=== PATIENT | male | born 1970 | race Caucasian/White ===

== ENCOUNTER 2019-11-20 14:11 | Inpatient (IN) | payer MEDICAID, SELFPAY ==
[2019-11-20] VITALS (11 sets, daily range): BP systolic 103–121; BP diastolic 79–91; PULSE 81–101; RESP 10–21; TEMP 35.9–36.6; O2SAT 94–99; BMI 30.4; BMI 31.0
--- NOTE | 2019-11-20 14:26 | DI.RAD.S_ITS ---
PROCEDURE: XR CHEST 1V INDICATIONS: chest pain TECHNIQUE: One view of the chest was acquired. COMPARISON: None. FINDINGS: Surgical changes and devices: None. Lungs and pleura: Lungs are mildly edematous. No pleural effusions or pneumothorax. Mediastinum: Mediastinal contours appear normal. Heart size is globally enlarged. Bones and chest wall: No suspicious bony lesions. Overlying soft tissues appear unremarkable. IMPRESSION: Chronic CHF pattern, possible mild acute exacerbation. No focal pneumonia found. Dictated by: Yann Rush M.D. on 11/20/2019 at 14:55 Approved by: Yann Rush M.D. on 11/20/2019 at 14:55
[2019-11-20 14:48] LABS: Add Manual Diff / Slide Review NO; Basophils Absolute Auto 0 /uL (0-100); Basophils Percent Auto 0.6 % (0-2); Eosinophils Absolute Auto 200 /uL (0-450); Eosinophils Percent Auto 2.6 % (2-4); Hematocrit 42.3 % (41-53); Hemoglobin 13.9 g/dL (13.5-17.5); Lymphocytes Absolute Auto 1300 /uL (1100-4500); Lymphocytes Percent Auto 17.3 % (25-40); Mean Corpuscular HGB Conc 32.8 % (30-36); Mean Corpuscular Hemoglobin 28.8 PG (26-34); Mean Corpuscular Volume 87.8 fL (80-100); Monocytes Absolute Auto 500 /uL (0-900); Neutrophils Absolute Auto 5500 /uL (1500-7000); Neutrophils Percent Auto 72.5 % (50-75); Platelet Count 287 X10^3/uL (150-400); Red Blood Cell Count 4.81 X10^6/uL (4.5-5.9); Red Cell Distribution Width 14.4 % (11.6-14.8); White Blood Cell Count 7.6 X10^3/uL (4.5-11.0)
--- NOTE | 2019-11-20 14:49 | ED_ITS ---
HPI - Weakness General Chief complaint: Weakness Stated complaint: swelling Time Seen by Provider: 11/20/19 14:25 Source: patient Mode of arrival: Ambulatory Limitations: no limitations History of Present Illness HPI Narrative: Patient is a 49-year-old male with no known medical history presenting today with swelling ongoing and progressively getting worse for 1 week. He says he noticed some swelling in his lower extremities it has gone up to his abdomen and even into his scrotum. He denies any chest pain or shortness of breath and denies any shortness of breath with exertion. He denies any fever chills or body aches. He overall feels weak. MD Complaint: generalized weakness Related Data Home Medications Medication Instructions Recorded Confirmed No Known Home Medications 11/20/19 11/20/19 Allergies Allergy/AdvReac Type Severity Reaction Status Date / Time No Known Drug Allergies Allergy Verified 11/20/19 14:17 Review of Systems Review of Systems ROS Unobtainable: All systems reviewed & are unremarkable except as noted in HPI and below Constitutional Constitutional: Denies chills, Denies fever(s), Denies lethargy and Denies weakness Eyes Eyes: Denies change in vision, Denies eye discharge, Denies irritation and Denies loss of vision ENT Ears, Nose, Mouth, and Throat: Denies change in voice, Denies neck pain and Denies sore throat Cardiovascular Cardiovascular: Denies chest pain, Reports edema, Denies lightheadedness and Denies dyspnea on exertion Respiratory Respiratory: Denies excessive phlegm production and Denies dyspnea on exertion Gastrointestinal Gastrointestinal: Denies abdominal pain, Denies change in bowel habits, Denies diarrhea, Denies nausea and Denies vomiting Genitourinary Genitourinary: Reports scrotal swelling (Now improving) Musculoskeletal Musculoskeletal: Denies neck pain Integumentary/Breasts Skin/Breast: Denies pruritus, Denies erythema, Denies rash and Denies wounds Neurologic Neurologic: Denies loss of vision and Denies weakness Patient History Medical History Patient denies medical problems (Acute) Social History household members: friend(s) Smoking Status: Former smoker Smoking Status: Former smoker alcohol intake frequency: 3 or more drinks per day Substance Use Type: marijuana Exam Initial Vital Signs Initial Vital Signs: Vital Signs Temperature 97.2 F L 11/20/19 14:17 Pulse Rate 101 H 11/20/19 14:17 Respiratory Rate 18 11/20/19 14:17 Blood Pressure 113/87 11/20/19 14:17 Pulse Oximetry 98 11/20/19 14:17 GENERAL: Well-appearing, well-nourished and in no acute distress. HEENT: Head atraumatic,EOMI, pupils reactive, face symmetric, moist mucous membranes CARDIOVASCULAR: Regular rate and rhythm systolic murmur present 09/25 RESPIRATORY: Breath sounds equal bilaterally, no wheezes rales or rhonchi. ABDOMEN: Soft, nontender. Normoactive bowel sounds all 4 quadrants. No guarding or rebound.rness EXTREMITIES: Normal range of motion, no clubbing. Bilateral nonpitting edema Neurovascularly intact NEUROLOGICAL: Alert and oriented x4.Normal gait and speech. Cranial nerves II through XII grossly intact. SKIN: Warm, dry, no laceration, no petechiae, no rashes or lesions. Course Orders Ordered: ED Orders 11/20/19 14:24 EKG-12 Lead Stat 11/20/19 14:26 XR chest 1V Stat 11/20/19 14:40 BNP [NT-proBNP (BNP-Adult 18+)] Stat Complete Blood Count AUTO DIFF Stat Comprehensive Metabolic Panel Stat Lipase Stat Partial Thromboplastin Time Stat Prothrombin Time INR Stat Troponin & CK Cardiac Panel Stat 11/20/19 16:30 Urine Drug Screen, Rapid Stat Discontinued Medications Aspirin (Aspirin Chew) 324 mg PO NOW ONE Stop: 11/20/19 14:43 Last Admin: 11/20/19 14:56 Dose: 324 mg Documented by: CHRISTINA Furosemide (Lasix) 40 mg IV NOW ONE Stop: 11/20/19 15:31 Last Admin: 11/20/19 15:44 Dose: 40 mg Documented by: CHRISTINA Consultations Consultation #1: Dr. Peña Time: 16:53 Vital Signs Vital signs: Vital Signs - 8 hr 11/20/19 14:17 11/20/19 14:30 11/20/19 15:00 Temperature 97.2 F L Pulse Rate 101 H 98 H 88 Respiratory Rate 18 21 10 L Blood Pressure 113/87 121/81 103/79 Pulse Oximetry 98 97 94 11/20/19 15:30 11/20/19 16:00 11/20/19 16:30 Temperature Pulse Rate 84 84 90 Respiratory Rate 13 12 20 Blood Pressure 105/81 108/83 Pulse Oximetry 96 11/20/19 16:31 Temperature Pulse Rate 89 Respiratory Rate 20 Blood Pressure 113/85 Pulse Oximetry 99 MDM - Weakness Lab Data Attestation: I reviewed the patient's lab results. Result diagrams: 11/20/19 14:40 11/20/19 14:40 Labs: Lab Results 11/20/19 11/20/19 11/20/19 Range/Units 14:40 14:40 14:40 WBC 7.6 (4.5-11.0) X10^3/uL RBC 4.81 (4.5-5.9) X10^6/uL Hgb 13.9 (13.5-17.5) g/dL Hct 42.3 (41-53) % MCV 87.8 (80-100) fL MCH 28.8 (26-34) PG MCHC 32.8 (30-36) % RDW 14.4 (11.6-14.8) % Plt Count 287 (150-400) X10^3/uL Neut % (Auto) 72.5 (50-75) % Lymph % (Auto) 17.3 L (25-40) % [place] % (Auto) 7.0 (3-14) % Eos % (Auto) 2.6 (2-4) % Baso % (Auto) 0.6 (0-2) % Neut # (Auto) 5500 (8536-9961) /uL Lymph # (Auto) 1300 (3728-0422) /uL [place] # (Auto) 500 (0-900) /uL Eos # (Auto) 200 (0-450) /uL Baso # (Auto) 0 (0-100) /uL PT 14.0 H (10.1-12.7) SECONDS INR 1.2 (0.9-1.3) APTT 33 (26.4-36.2) SECONDS Sodium 135 L (137-145) mmol/L Potassium 4.0 (3.4-5.1) mmol/L Chloride 106 (98-107) mmol/L Carbon Dioxide 23 (22-32) mmol/L BUN 7 L (9-20) mg/dL Creatinine 0.90 (0.66-1.25) mg/dL Estimated GFR > 60.0 (>60) mL/min BUN/Creatinine Ratio 7.8 (6-22) Glucose 148 H (70-100) mg/dL Calcium 9.0 (8.4-10.2) mg/dL Total Bilirubin 1.4 H (0.2-1.3) mg/dL AST 50 (17-59) IU/L ALT 57 H (<50) IU/L Alkaline Phosphatase 115 (38-126) U/L Total Creatine Kinase 325 H (55-170) U/L CK-MB (CK-2) 4.86 H (<2.37) ng/mL CK-MB (CK-2) Rel Index 1.5 (1.5-5.0) % Troponin I 0.061 H (0.01-0.034) ng/mL NT-Pro-B Natriuret Pep 3200 H (<125) pg/mL Total Protein 6.4 (6.3-8.2) g/dL Albumin 3.8 (3.5-5.0) g/dL Globulin 2.6 (1.7-4.1) g/dL Albumin/Globulin Ratio 1.5 (1.0-2.8) Lipase 126 (23-300) U/L U Opiates 300ng/mL cut (Negative) Ur Oxycodone Screen (Negative) Urine Methadone Screen (Negative) Ur Barbiturates Screen (Negative) U Tricyclic Antidepress (Negative) Ur Phencyclidine Scrn (Negative) Ur Amphetamines Screen (Negative) U Methamphetamines Scrn (Negative) Ur MDMA Scrn (Ecstasy) (Negative) U Benzodiazepines Scrn (Negative) Urine Cocaine Screen (Negative) U Marijuana (THC) Screen (Negative) 11/20/19 Range/Units 16:30 WBC (4.5-11.0) X10^3/uL RBC (4.5-5.9) X10^6/uL Hgb (13.5-17.5) g/dL Hct (41-53) % MCV (80-100) fL MCH (26-34) PG MCHC (30-36) % RDW (11.6-14.8) % Plt Count (150-400) X10^3/uL Neut % (Auto) (50-75) % Lymph % (Auto) (25-40) % [place] % (Auto) (3-14) % Eos % (Auto) (2-4) % Baso % (Auto) (0-2) % Neut # (Auto) (7022-4584) /uL Lymph # (Auto) (0458-8741) /uL [place] # (Auto) (0-900) /uL Eos # (Auto) (0-450) /uL Baso # (Auto) (0-100) /uL PT (10.1-12.7) SECONDS INR (0.9-1.3) APTT (26.4-36.2) SECONDS Sodium (137-145) mmol/L Potassium (3.4-5.1) mmol/L Chloride (98-107) mmol/L Carbon Dioxide (22-32) mmol/L BUN (9-20) mg/dL Creatinine (0.66-1.25) mg/dL Estimated GFR (>60) mL/min BUN/Creatinine Ratio (6-22) Glucose (70-100) mg/dL Calcium (8.4-10.2) mg/dL Total Bilirubin (0.2-1.3) mg/dL AST (17-59) IU/L ALT (<50) IU/L Alkaline Phosphatase (38-126) U/L Total Creatine Kinase (55-170) U/L CK-MB (CK-2) (<2.37) ng/mL CK-MB (CK-2) Rel Index (1.5-5.0) % Troponin I (0.01-0.034) ng/mL NT-Pro-B Natriuret Pep (<125) pg/mL Total Protein (6.3-8.2) g/dL Albumin (3.5-5.0) g/dL Globulin (1.7-4.1) g/dL Albumin/Globulin Ratio (1.0-2.8) Lipase (23-300) U/L U Opiates 300ng/mL cut Negative (Negative) Ur Oxycodone Screen Negative (Negative) Urine Methadone Screen Negative (Negative) Ur Barbiturates Screen Negative (Negative) U Tricyclic Antidepress Negative (Negative) Ur Phencyclidine Scrn Negative (Negative) Ur Amphetamines Screen Negative (Negative) U Methamphetamines Scrn Positive H (Negative) Ur MDMA Scrn (Ecstasy) Negative (Negative) U Benzodiazepines Scrn Negative (Negative) Urine Cocaine Screen Negative (Negative) U Marijuana (THC) Screen Positive H (Negative) Urine Dip Bedside Urine Glucose Negative Bedside Urine Bilirubin - Negative Bedside Urine Ketone - Negative Urine Specific [place] 1.010 Bedside Urine Occult Blood - Negative Bedside Urine pH 6.5 Bedside Urine Protein - Negative Bedside Urine Urobilinogen - Negative Bedside Urine Nitrite - Negative Bedside Urine Leukocytes - Negative Esterase Imaging Data Chest x-ray: Radiologist Impression: PROCEDURE: XR CHEST 1V INDICATIONS: chest pain TECHNIQUE: One view of the chest was acquired. COMPARISON: None. FINDINGS: Surgical changes and devices: None. Lungs and pleura: Lungs are mildly edematous. No pleural effusions or pneumothorax. Mediastinum: Mediastinal contours appear normal. Heart size is globally enlarged. Bones and chest wall: No suspicious bony lesions. Overlying soft tissues appear unremarkable. IMPRESSION: Chronic CHF pattern, possible mild acute exacerbation. No focal pneumonia found. Dictated by: Yann Rush M.D. on 11/20/2019 at 14:55 Approved by: Yann Rush M.D. on 11/20/2019 at 14:5 ECG Data Attestation: I personally reviewed and interpreted this ECG as follows: Prior ECG tracings: not available for review Interpretation: Normal sinus rhythm rate 95 p.r. interval 182 QRS 114 LVH noted with LVH strain T-wave inversions noted in lead 1 aVL V4 through V6 no ST el evations no priors to compare EKG 2. Sinus rhythm rate 87 LVH drain again noted no changes from prior MDM Narrative Medical decision making narrative: Patient's significantly elevated proBNP of 3200 LVH strain on his EKG, and mildly elevated troponin. He has a known murmur which is auscultated on exam. He initially denied any drug use however his drug screen came back positive for methamphetamines and marijuana. He is afebrile and no leukocytosis, not thought to have endocarditis at this time but will need an echocardiogram to assess EF function and look at his valves. Cardiology recommends an echocardiogram and serial Troponins and workup may transfer to [facility] if need Dr. combs updated on patient's symptoms test results and except Discharge Plan Departure Patient Disposition: Admitted as Observation Clinical Impression: CHF (congestive heart failure) Discharge Date/Time: 11/20/19 17:18 Admit Date/Time: 11/20/19 16:57 Admit Provider: Shaye Ordoñez
[2019-11-20 14:56] LABS: INR 1.2 (0.9-1.3)
[2019-11-20] MEDS: ASPIRIN 81 MG CHEW TAB 324 MG PO (14:56)
[2019-11-20 14:59] LABS: PTT Partial Thromboplastin Tim 33 SECONDS (26.4-36.2)
[2019-11-20 15:04] LABS: Alanine Aminotransferase 57 IU/L (<50); Albumin 3.8 g/dL (3.5-5.0); Albumin Globulin Ratio 1.5 (1.0-2.8); Alkaline Phosphatase 115 U/L (38-126); Aspartate Aminotransferase 50 IU/L (17-59); BUN Creatinine Ratio 7.8 (6-22); Bilirubin Total 1.4 mg/dL (0.2-1.3); Blood Urea Nitrogen 7 mg/dL (9-20); Carbon Dioxide 23 mmol/L (22-32); Chloride 106 mmol/L (98-107); Creatine Kinase 325 U/L (55-170); Estimated Glomerular Filt Rate > 60.0 mL/min (>60); Globulin 2.6 g/dL (1.7-4.1); Glucose 148 mg/dL (70-100); HEMOLYSIS < 15 (0-50); Lipase 126 U/L (23-300); Sodium 135 mmol/L (137-145); Total Protein 6.4 g/dL (6.3-8.2)
[2019-11-20 15:16] LABS: NT-proBNP (BNP-Adult 18+) 3200 pg/mL (<125); Troponin I 0.061 ng/mL (0.01-0.034)
[2019-11-20 15:19] LABS: CKMB % Relative Index 1.5 % (1.5-5.0); Creatine Kinase MB 4.86 ng/mL (<2.37)
--- NOTE | 2019-11-20 15:24 | PC.NURSE ---
Pt c/o lower extremity edema that has increased to waist level including scrotum. Started wearing SRINIVAS stockings on legs. States scrotum has improved. + lena previously known to patient however pt has no pcp. Pt does c/o shortness of breath when walking stairs.
[2019-11-20] MEDS: FUROSEMIDE 40 MG/4 ML VIAL IV ×2 (15:44→21:34)
[2019-11-20 17:04] LABS: UR Morphine/Opiate cutoff 300 Negative (Negative); Ur Creatinine Normal (Normal); Ur Specific Gravity Normal (Normal); Urine Amphetamines Negative (Negative); Urine Barbiturates Negative (Negative); Urine Benzodiazepines Negative (Negative); Urine Cocaine Negative (Negative); Urine MDMA Negative (Negative); Urine Methadone Negative (Negative); Urine Methamphetamines Positive (Negative); Urine Oxycodone Negative (Negative); Urine Phencyclidine Negative (Negative); Urine Tetrahydrocannabinol Positive (Negative); Urine Tricyclic Antidepressant Negative (Negative); Urine pH Normal (Normal)
[2019-11-20 19:01] LABS: COVID19 -Nasal RAPID Negative (Negative)
--- NOTE | 2019-11-20 19:29 | PM.HP.1 ---
History of Present Illness History of Present Illness Date Patient Seen: 11/20/19 Time Patient Seen: 19:29 Chief complaint: swelling Narrative: This is a 49-year-old male with new onset congestive heart failure. He describes the 1st unusual symptom he had was of a brief syncopal episode 2 weeks ago which he did make much out of. For the last 6 days he has had leg swelling and scrotal swelling. There has been no shortness of breath. On admission his BNP is 3200 and his chest x-ray shows congestive heart failure. He has a heart murmur that is apparently new. With 40 mg of Lasix given in the emergency department he no longer has any edema when I see him on the medical galvez this evening. He does not mention any previous cardiology follow-up or evaluation and seems to be unaware and somewhat unconcerned about having heart disease. His urine drug screen is positive for methamphetamines and negative for cocaine. He says he last used cocaine years ago and methamphetamines about 1 month ago. There is no family history of heart disease. He has not had any chest pain. His CK is elevated at 323. After discussion with Cardiology he was admitted for diuresis, troponin surveillance and telemetry. He has had 1 6 beat run of V-tach while on telemetry this evening. He has not had any symptoms to match that episode. He says he lives in [place] but has no fixed address and is essentially homeless. Patient History Medical History (Updated 11/20/19 @ 20:25 by Alexandra Reeves MD) Alcohol use (Acute) Cigarette nicotine dependence (Acute) Methamphetamine use (Acute) Patient denies medical problems (Acute) Surgical History (Updated 11/20/19 @ 20:25 by Alexandra Reeves MD) Hx of tonsillectomy (Acute) Family & Social History Family History (Updated 11/20/19 @ 20:26 by Alexandra Reeves MD) Mother No problems noted. Father Pancreas cancer Social History: household members friend(s) Prior Living Arrangements House Safety & Behavioral: Feels Safe in Current Yes Environment Been Physically Hurt or No Threatened By a Person Suicidal Ideation Description None Suicide Plan Description No Plan Tobacco & Substance use: Tobacco type cigarettes,cannabis/marijuana Smoking Status Former smoker alcohol intake frequency 3 or more drinks per day Substance Use Type marijuana Comment: His backup decision maker is his mother, Siri Jarrett. 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 He is currently homeless, spending most of his time in [place]. He admits to methamphetamine use 1 month ago. He states his last cocaine use was many years ago. Meds Home Medications and Allergies Home Medications Medication Instructions Recorded Confirmed Type No Known Home Medications 11/20/19 11/20/19 History Allergies Allergy/AdvReac Type Severity Reaction Status Date / Time No Known Drug Allergies Allergy Verified 11/20/19 14:17 Review of Systems Review of Systems Narrative: Positive for increased swelling and syncope Negative for fevers, chills, sweats, chest pain, shortness of breath, diarrhea, nausea, vomiting, abdominal pain, bleeding, dysuria, headaches, seizures, joint pain, new allergies, difficulty talking. ROS: Yes All systems reviewed with the patient and are negative except as otherwise documented Exam Vital Signs (past 8 hours): - 11/20/19 14:17 11/20/19 14:30 11/20/19 15:00 Temperature 97.2 F L Pulse Rate 101 H 98 H 88 Respiratory Rate 18 21 10 L Blood Pressure 113/87 121/81 103/79 Pulse Oximetry 98 97 94 11/20/19 15:30 11/20/19 16:00 11/20/19 16:30 Temperature Pulse Rate 84 84 90 Respiratory Rate 13 12 20 Blood Pressure 105/81 108/83 Pulse Oximetry 96 11/20/19 16:31 11/20/19 17:00 Temperature Pulse Rate 89 83 Respiratory Rate 20 12 Blood Pressure 113/85 115/87 Pulse Oximetry 99 99 Oxygen Delivery Method Room Air Narrative Exam Narrative: He is alert and oriented, in no apparent distress Pupils are equally round and reactive to light and accommodation Sclerae are pink and nonicteric Extraocular muscles are intact Throat looks normal No lymph nodes are felt head, neck, supraclavicular area There is no thyromegaly JVD is less than 6 cm No carotid bruits are heard Heart is regular rate and rhythm with a 2/6 systolic ejection murmur Lungs are clear to auscultation bilaterally Abdomen is obese, nontender, no organomegaly, bowel sounds active Extremities have no ankle edema Skin has no rash or jaundice Neuro exam Motor function is 5/5 throughout There is no tremor Cranial nerves 2-12 test intact Objective ECG Impression: Normal sinus rhythm Left ventricular hypertrophy with repolarization abnormality ST-T wave changes, cannot rule out Lateral Ischemia Prolonged QT Abnormal ECG Labs Result Diagrams: 11/20/19 14:40 11/20/19 14:40 Labs: Laboratory Results - last 24 hr 11/20/19 11/20/19 11/20/19 14:40 14:40 14:40 WBC 7.6 RBC 4.81 Hgb 13.9 Hct 42.3 MCV 87.8 MCH 28.8 MCHC 32.8 RDW 14.4 Plt Count 287 Neut % (Auto) 72.5 Lymph % (Auto) 17.3 L [place] % (Auto) 7.0 Eos % (Auto) 2.6 Baso % (Auto) 0.6 Neut # (Auto) 5500 Lymph # (Auto) 1300 [place] # (Auto) 500 Eos # (Auto) 200 Baso # (Auto) 0 PT 14.0 H INR 1.2 APTT 33 Sodium 135 L Potassium 4.0 Chloride 106 Carbon Dioxide 23 BUN 7 L Creatinine 0.90 Estimated GFR > 60.0 BUN/Creatinine Ratio 7.8 Glucose 148 H Calcium 9.0 Total Bilirubin 1.4 H AST 50 ALT 57 H Alkaline Phosphatase 115 Total Creatine Kinase 325 H CK-MB (CK-2) 4.86 H CK-MB (CK-2) Rel Index 1.5 Troponin I 0.061 H NT-Pro-B Natriuret Pep 3200 H Total Protein 6.4 Albumin 3.8 Globulin 2.6 Albumin/Globulin Ratio 1.5 Lipase 126 U Opiates 300ng/mL cut Ur Oxycodone Screen Urine Methadone Screen Ur Barbiturates Screen U Tricyclic Antidepress Ur Phencyclidine Scrn Ur Amphetamines Screen U Methamphetamines Scrn Ur MDMA Scrn (Ecstasy) U Benzodiazepines Scrn Urine Cocaine Screen U Marijuana (THC) Screen COVID-19 PCR 11/20/19 11/20/19 16:30 17:03 WBC RBC Hgb Hct MCV MCH MCHC RDW Plt Count Neut % (Auto) Lymph % (Auto) [place] % (Auto) Eos % (Auto) Baso % (Auto) Neut # (Auto) Lymph # (Auto) [place] # (Auto) Eos # (Auto) Baso # (Auto) PT INR APTT Sodium Potassium Chloride Carbon Dioxide BUN Creatinine Estimated GFR BUN/Creatinine Ratio Glucose Calcium Total Bilirubin AST ALT Alkaline Phosphatase Total Creatine Kinase CK-MB (CK-2) CK-MB (CK-2) Rel Index Troponin I NT-Pro-B Natriuret Pep Total Protein Albumin Globulin Albumin/Globulin Ratio Lipase U Opiates 300ng/mL cut Negative Ur Oxycodone Screen Negative Urine Methadone Screen Negative Ur Barbiturates Screen Negative U Tricyclic Antidepress Negative Ur Phencyclidine Scrn Negative Ur Amphetamines Screen Negative U Methamphetamines Scrn Positive H Ur MDMA Scrn (Ecstasy) Negative U Benzodiazepines Scrn Negative Urine Cocaine Screen Negative U Marijuana (THC) Screen Positive H COVID-19 PCR Negative Assessment & Plan Assessment & Plan narrative: Cardiomyopathy, present on admission. Active -Trop 0.061 on admission -EKG with LVH and repolarization ST/T wave changes -Follow Troponins and observe for arrythmias on telemetry -Consider cardiac stress test. -pending Echocardiogram -begin Carvedilolol, follow BNP/electrolytes and continue IV Lasix. -begin daily Aspirin Congestive Heart Failure, present on admission. Active -BNP 3,200 and CXR read as CHF -Apparent Valvular Abnormality with new systolic murmur -No admitted h/o IVDU or known valvular endocarditis -Echocardiogram pending Daily Alcohol Use, present on admission. 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 Active -Admission BS of 148. No h/o Diabetes -Monitor BS and add correctional scale/Metformin if indicated -Add A1C Quality VTE Deep Vein Thrombosis/Pulmonary Embolism Present on Admission: No
--- NOTE | 2019-11-20 20:30 | DI.ECHO.S_ITS ---
[facility]+ : : [address] : : : : [id number] : : : : Phone: [phone]+ Echocardiogram Report + + :Name: CATHY LAWSON Study Date: 11/21/2019 Height: 72 in : :[facility] Weight: 254 lb : : Gender: Male BSA: 2.4 m2 : :: 1970 Age: 49 yrs BP: 125/80 mmHg: :Reason For Study: CHF : : Performed By: Fahad Wen : :Referring: Alexandra FLOOD E : + + Interpretation Summary The left ventricle is moderately dilated. Left ventricular systolic function is severely reduced. Diastolic parameters suggest a pseudonormalization pattern, consistent with probable elevated filling pressures. The right ventricle is mildly dilated. Right ventricular systolic function is moderately reduced. There is severe aortic stenosis. The right ventricular systolic pressure is estimated to be at least 52 mmHg based on an estimated right atrial pressure of 15 mm Hg The peak aortic velocity is 4 m/sec, mean gradient is 43.1 mmHg. The calculated aortic valve area is 0.96 cm2. There is a small, mobile echogenic structure noted on the aortic side of the aortic valve measuring approximately 6 mm x 2 mm. -Overall this echocardiograms shows severe biventricular dysfunction with evidence of increased biventricular filling pressures, severe aortic stenosis probably related to underlying bicuspid aortic valve and mobile echodensity associated with the bicuspid aortic valve. -Critical findings were communicated to Dr. Ordoñez. Procedure: A two-dimensional transthoracic echocardiogram with color flow and Doppler was performed. The study quality was technically good. There is no prior echocardiogram noted for this patient. The patient was in normal sinus rhythm during the exam. Left Ventricle: The left ventricle is moderately dilated. Left ventricular wall thickness is borderline increased. The ejection fraction is estimated to be 15-20%. Left ventricular systolic function is severely reduced. There is severe global hypokinesis of the left ventricle. Diastolic parameters suggest a pseudonormalization pattern, consistent with probable elevated filling pressures. Right Ventricle: The right ventricle is mildly dilated. Right ventricular systolic function is moderately reduced. Atria: The left atrium is moderately dilated. The right atrium is mildly dilated. There is no Doppler evidence for an atrial septal defect. Mitral Valve: The mitral valve is normal in structure and function. There is trace mitral regurgitation. Aortic Valve: The aortic valve is severely calcified. The aortic valve is bicuspid. There is fusion of the right and left coronary cusps. There is a small, mobile echogenic structure noted on the aortic side of the aortic valve measuring approximately 6 mm x 2 mm. The peak aortic velocity is 4 m/sec. The aortic valve mean gradient is 43.1 mmHg. The calculated aortic valve area is 0.96 cm2. There is severe aortic stenosis. There is mild aortic regurgitation. Tricuspid Valve: The tricuspid valve leaflets are thin and pliable. There is moderate to severe tricuspid regurgitation. The right ventricular systolic pressure is estimated to be at least 52 mmHg based on an estimated right atrial pressure of 15 mm Hg. Pulmonic Valve: The pulmonic valve is normal in structure and function. There is trace pulmonic regurgitation. Great Vessels: The aortic root is normal size. The ascending aorta is at the upper limits of normal in size. The pulmonary artery is normal size. The IVC is dilated (diameter is greater than 2.1 cm) and it collapses less than 50% with a sniff. This suggests a high right atrial pressure of 15 mm Hg. Pericardium/ Pleura There is no pericardial effusion. There is no pleural effusion. MMode/2D Measurements & Calculations LVIDd: 6.3 cm LVOT diam: 2.7 cm LVIDs: 5.6 cm Ao root diam: 3.6 cm FS: 10.4 % asc Aorta Diam: 3.5 cm EPSS: 1.9 cm Ao Arch Diam (Prox Trans): 3.2 cm IVSd: 0.95 cm LVPWd: 1.1 cm LV cat. diameter/BSA (cm/m^2): 2.7 LV sys. diameter/BSA (cm/m^2): 2.4 LA dimension: 5.1 cm RA long axis: 5.3 cm LA A2 area: 29.6 cm2 RA area: 22.3 cm2 LA A4 area: 29.8 cm2 RA vol: 80.0 ml LA length (vol): 6.9 cm RA : 33.9 ml/m2 LA vol: 108.1 ml IVC diam: 2.6 cm LA vol index: 45.8 ml/m2 RVD1 (basal): 4.4 cm RVD2 (mid): 4.1 cm TAPSE: 0.94 cm Doppler Measurements & Calculations Ao V2 max: 398.1 cm/sec LVOT Max Eliot: 66.4 cm/sec Ao V2 mean: 319.1 cm/sec LV V1 max P.8 mmHg Ao max P.4 mmHg LV V1 VTI: 19.5 cm Ao mean P.1 mmHg LINDA(I,D): 1.1 cm2 Ao V2 VTI: 99.6 cm LINDA(V,D): 0.96 cm2 sev ratio: 0.20 LINDA indexed to BSA (cm^2/m^2): 0.48 AI P1/2t: 744.7 msec AI dec slope: 120.6 cm/sec2 MV E max eliot: 61.1 cm/sec TR max eliot: 305.6 cm/sec MV A max eliot: 19.8 cm/sec TR max P.4 mmHg MV E/A: 3.1 PA V2 max: 42.4 cm/sec Med Peak E' Eliot: 2.6 cm/sec PA V2 mean: 34.5 cm/sec E/E' med: 23.5 PA mean P.49 mmHg Lat Peak E' Eliot: 6.0 cm/sec PA pr(Accel): 37.9 mmHg E/E' lat: 10.2 E/e' average: 16.9 MV dec time: 0.13 sec SV(LVOT): 112.5 ml Electronically signed by: Nilson La M.D. on Reading Physician:11/21/2019 05:58 PM
[2019-11-20 20:53] LABS: Creatine Kinase 278 U/L (55-170)
[2019-11-20 21:06] LABS: Troponin I 0.071 ng/mL (0.01-0.034)
[2019-11-20 21:08] LABS: CKMB % Relative Index 1.7 % (1.5-5.0); Creatine Kinase MB 4.76 ng/mL (<2.37)
[2019-11-20] MEDS: ASPIRIN EC 81 MG TABLET PO (22:42)
[2019-11-20] MEDS: carvediloL 3.125 MG TABLET PO (22:43)
[2019-11-20 22:46] LABS: Hemoglobin A1C% w Est Avg Glu 6.3 % (4.0-6.0)
[2019-11-20 23:25] LABS: Troponin I 0.066 ng/mL (0.01-0.034)
[2019-11-21 04:49] VITALS: BP 104/76; PULSE 81; RESP 16; TEMP 36.1; O2SAT 98
[2019-11-21 05:24] LABS: Add Manual Diff / Slide Review NO; Basophils Absolute Auto 100 /uL (0-100); Basophils Percent Auto 1.1 % (0-2); Eosinophils Absolute Auto 300 /uL (0-450); Eosinophils Percent Auto 3.6 % (2-4); Hematocrit 41.2 % (41-53); Hemoglobin 13.4 g/dL (13.5-17.5); Lymphocytes Absolute Auto 1800 /uL (1100-4500); Lymphocytes Percent Auto 22.9 % (25-40); Mean Corpuscular HGB Conc 32.6 % (30-36); Mean Corpuscular Hemoglobin 28.5 PG (26-34); Mean Corpuscular Volume 87.7 fL (80-100); Monocytes Absolute Auto 700 /uL (0-900); Monocytes Percent Auto 9.2 % (3-14); Neutrophils Absolute Auto 5100 /uL (1500-7000); Neutrophils Percent Auto 63.2 % (50-75); Platelet Count 282 X10^3/uL (150-400); Red Cell Distribution Width 14.1 % (11.6-14.8)
[2019-11-21 05:36] LABS: Creatine Kinase 196 U/L (55-170)
[2019-11-21 05:37] LABS: BUN Creatinine Ratio 7.6 (6-22); Blood Urea Nitrogen 8 mg/dL (9-20); Calcium 9.2 mg/dL (8.4-10.2); Carbon Dioxide 32 mmol/L (22-32); Chloride 101 mmol/L (98-107); Estimated Glomerular Filt Rate > 60.0 mL/min (>60); Glucose 106 mg/dL (70-100); HEMOLYSIS < 15 (0-50); Potassium 4.2 mmol/L (3.4-5.1); Sodium 136 mmol/L (137-145)
[2019-11-21 05:45] LABS: NT-proBNP (BNP-Adult 18+) 2810 pg/mL (<125)
[2019-11-21 05:49] LABS: Troponin I 0.065 ng/mL (0.01-0.034)
[2019-11-21 06:19] LABS: CKMB % Relative Index 1.7 % (1.5-5.0); Creatine Kinase MB 3.41 ng/mL (<2.37)
[2019-11-21] MEDS: FUROSEMIDE 40 MG/4 ML VIAL IV (06:31)
[2019-11-21] MEDS: SODIUM CHLORIDE 0.9% FLUSH 10 ML IV ×2 (06:31→08:05)
[2019-11-21 08:00] VITALS: BP 112/83; PULSE 75; RESP 16; TEMP 36; O2SAT 100
[2019-11-21] MEDS: ENOXAPARIN 40 MG/0.4 ML SYRINGE SUBCUT (08:04)
[2019-11-21] MEDS: carvediloL 3.125 MG TABLET PO ×2 (08:05→18:45)
[2019-11-21] MEDS: ASPIRIN EC 81 MG TABLET PO (08:05)
--- NOTE | 2019-11-21 08:46 | CM.DANOTE ---
DCP: Case received, EMR reviewed and met with patient. Introduced self and role. Was able to obtain some information from patient regarding his current living situation, as well as insurance and provider information. DCP assessment completed with information that is currently available. Patient is a 49 year old male who admitted yesterday afternoon to the care of the hospitalist team. PCP: None Payer: No Insurance. Patient came to the hospital via private vehicle secondary to swelling in his legs and scrotal area. Patient currently diagnosed with CHF, and also has a heart murmur. Met with patient in his room. He was sitting up in bed, answers yes or no questions, but does not volunteer any additional information. Asked patient about his current living situation, as is stated that he is homeless. He stated that he is currently staying with his mother, Sugey, on [address]. 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 Confirmed with patient that he has no insurance, and no provider, since he is not employed currently. Asked him about current drug use, stated that he had used meth. recently. Asked him if he would like any resources due to his drug habit, and declined. Let him know that this assistant case manager could let admission counselors come and see him with [employer] application/[employer] application, for he may need follow up with a primary provider. Let him know that this assistant case manager can have executive secretary social welfare come and see him as well. P: DCP to continue to be available for any resources needed at discharge. Have sent an email to admission counselors as well, and will ask about a SHEET [employer]IC[employer] consult. Lyn Walker RN/Explosive Operator Supervisor
[2019-11-21 11:50] LABS: Creatine Kinase 177 U/L (55-170)
[2019-11-21 12:00] VITALS: BP 98/75; PULSE 99; RESP 17; TEMP 36.1; O2SAT 98
[2019-11-21 12:02] LABS: Troponin I 0.067 ng/mL (0.01-0.034)
[2019-11-21 12:05] LABS: Creatine Kinase MB 3.55 ng/mL (<2.37)
--- NOTE | 2019-11-21 12:54 | P.PN_ITS ---
Subjective Subjective Date Patient Seen: 11/21/19 Interval history: León Dai is a 49-year-old male with a past medical history significant for polysubstance abuse including methamphetamines, marijuana, alcohol, and nicotine who presented to the ED complaining of lower extremity swelling. The patient is resting in bed comfortably. He has no complaints overall. He exhibits bruxism and clenches his jaw quite frequently which are likely a result of his methamphetamine use. He reports he has used methamphetamines for approximately 15 years. 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 Discussed probable congestive heart failure and his methamphetamine use causing tachyarrhythmias which will lead to tachyarrhythmia induced cardiomyopathy. Plan to risk stratify with hemoglobin A1c and lipid panel added to morning labs. Also discussed tobacco dependence and marijuana use and recommended abstinence of all substances and cessation of smoking. He has no complaints and denies headache, chest pain, shortness of breath, abdominal pain, nausea, vomiting, fever, chills, dysuria, diarrhea or constipation. He denies orthopnea or paroxysmal nocturnal dyspnea. He does endorse dyspnea on exertion for at least 6 months. His peripheral edema including his legs, scrotum and abdomen have resolved. He is voiding without difficulty and he has diuresed very well, approximately net -3 L. He is up ambulating independently. Exam Vital Signs (past 8 hours): - 11/21/19 08:00 11/21/19 12:00 Temperature 96.8 F L 96.9 F L Pulse Rate 75 99 H Respiratory Rate 16 17 Blood Pressure 112/83 98/75 Pulse Oximetry 100 98 Oxygen Delivery Method Room Air Oxygen Flow Rate 0 Narrative Exam Narrative: General: Middle-aged male sitting in bed and in no acute distress, well- developed, well-nourished, appropriately interactive. HEENT: Normocephalic, atraumatic. External ears without defect. Pupils equal, round, and reactive to light. Anicteric sclerae, moist conjunctivae, and no lid lag. Oropharynx free of erythema and cobble stoning with moist mucosa. Frequent bruxism and jaw clenching. Neck: Supple with full range of motion. No jugular venous distension. No lymphadenopathy or thyromegaly. Cardiovascular: Regular rate and rhythm without murmurs, rubs, or gallops appreciated Pulmonary: Clear to auscultation bilaterally with occasional bibasilar crackle. No wheezes or rhonchi. Normal respiratory effort with no use of accessory muscles. Abdomen: Soft, bowel sounds present, nontender, nondistended. No he patosplenomegaly or masses appreciated. Genitourinary: Scrotal edema resolved. Extremities: No clubbing or cyanosis. Trace bipedal pitting edema. Skin: Normal temperature, turgor, and texture; no rash, ulcers, or subcutaneous nodules appreciated. Neurological: Cranial nerves grossly intact. Psychiatric: Normal mood and affect. Alert and oriented to person, place, and time. Objective Labs Result Diagrams: 11/21/19 04:40 11/21/19 04:40 Labs: Laboratory Results - last 24 hr 11/20/19 11/20/19 11/20/19 14:40 14:40 14:40 WBC 7.6 RBC 4.81 Hgb 13.9 Hct 42.3 MCV 87.8 MCH 28.8 MCHC 32.8 RDW 14.4 Plt Count 287 Neut % (Auto) 72.5 Lymph % (Auto) 17.3 L [place] % (Auto) 7.0 Eos % (Auto) 2.6 Baso % (Auto) 0.6 Neut # (Auto) 5500 Lymph # (Auto) 1300 [place] # (Auto) 500 Eos # (Auto) 200 Baso # (Auto) 0 PT 14.0 H INR 1.2 APTT 33 Sodium 135 L Potassium 4.0 Chloride 106 Carbon Dioxide 23 BUN 7 L Creatinine 0.90 Estimated GFR > 60.0 BUN/Creatinine Ratio 7.8 Glucose 148 H Hemoglobin A1c Calcium 9.0 Total Bilirubin 1.4 H AST 50 ALT 57 H Alkaline Phosphatase 115 Total Creatine Kinase 325 H CK-MB (CK-2) 4.86 H CK-MB (CK-2) Rel Index 1.5 Troponin I 0.061 H NT-Pro-B Natriuret Pep 3200 H Total Protein 6.4 Albumin 3.8 Globulin 2.6 Albumin/Globulin Ratio 1.5 Lipase 126 U Opiates 300ng/mL cut Ur Oxycodone Screen Urine Methadone Screen Ur Barbiturates Screen U Tricyclic Antidepress Ur Phencyclidine Scrn Ur Amphetamines Screen U Methamphetamines Scrn Ur MDMA Scrn (Ecstasy) U Benzodiazepines Scrn Urine Cocaine Screen U Marijuana (THC) Screen COVID-19 PCR 11/20/19 11/20/19 11/20/19 14:40 16:30 17:03 WBC RBC Hgb Hct MCV MCH MCHC RDW Plt Count Neut % (Auto) Lymph % (Auto) [place] % (Auto) Eos % (Auto) Baso % (Auto) Neut # (Auto) Lymph # (Auto) [place] # (Auto) Eos # (Auto) Baso # (Auto) PT INR APTT Sodium Potassium Chloride Carbon Dioxide BUN Creatinine Estimated GFR BUN/Creatinine Ratio Glucose Hemoglobin A1c 6.3 H Calcium Total Bilirubin AST ALT Alkaline Phosphatase Total Creatine Kinase CK-MB (CK-2) CK-MB (CK-2) Rel Index Troponin I NT-Pro-B Natriuret Pep Total Protein Albumin Globulin Albumin/Globulin Ratio Lipase U Opiates 300ng/mL cut Negative Ur Oxycodone Screen Negative Urine Methadone Screen Negative Ur Barbiturates Screen Negative U Tricyclic Antidepress Negative Ur Phencyclidine Scrn Negative Ur Amphetamines Screen Negative U Methamphetamines Scrn Positive H Ur MDMA Scrn (Ecstasy) Negative U Benzodiazepines Scrn Negative Urine Cocaine Screen Negative U Marijuana (THC) Screen Positive H COVID-19 PCR Negative 11/20/19 11/20/19 11/21/19 20:37 22:55 04:40 WBC 8.0 RBC 4.70 Hgb 13.4 L Hct 41.2 MCV 87.7 MCH 28.5 MCHC 32.6 RDW 14.1 Plt Count 282 Neut % (Auto) 63.2 Lymph % (Auto) 22.9 L [place] % (Auto) 9.2 Eos % (Auto) 3.6 Baso % (Auto) 1.1 Neut # (Auto) 5100 Lymph # (Auto) 1800 [place] # (Auto) 700 Eos # (Auto) 300 Baso # (Auto) 100 PT INR APTT Sodium Potassium Chloride Carbon Dioxide BUN Creatinine Estimated GFR BUN/Creatinine Ratio Glucose Hemoglobin A1c Calcium Total Bilirubin AST ALT Alkaline Phosphatase Total Creatine Kinase 278 H CK-MB (CK-2) 4.76 H CK-MB (CK-2) Rel Index 1.7 Troponin I 0.071 H 0.066 H NT-Pro-B Natriuret Pep Total Protein Albumin Globulin Albumin/Globulin Ratio Lipase U Opiates 300ng/mL cut Ur Oxycodone Screen Urine Methadone Screen Ur Barbiturates Screen U Tricyclic Antidepress Ur Phencyclidine Scrn Ur Amphetamines Screen U Methamphetamines Scrn Ur MDMA Scrn (Ecstasy) U Benzodiazepines Scrn Urine Cocaine Screen U Marijuana (THC) Screen COVID-19 PCR 11/21/19 11/21/19 11/21/19 04:40 04:40 11:32 WBC RBC Hgb Hct MCV MCH MCHC RDW Plt Count Neut % (Auto) Lymph % (Auto) [place] % (Auto) Eos % (Auto) Baso % (Auto) Neut # (Auto) Lymph # (Auto) [place] # (Auto) Eos # (Auto) Baso # (Auto) PT INR APTT Sodium 136 L Potassium 4.2 Chloride 101 Carbon Dioxide 32 BUN 8 L Creatinine 1.05 Estimated GFR > 60.0 BUN/Creatinine Ratio 7.6 Glucose 106 H Hemoglobin A1c Calcium 9.2 Total Bilirubin AST ALT Alkaline Phosphatase Total Creatine Kinase 196 H 177 H CK-MB (CK-2) 3.41 H 3.55 H CK-MB (CK-2) Rel Index 1.7 2.0 Troponin I 0.065 H 0.067 H NT-Pro-B Natriuret Pep 2810 H Total Protein Albumin Globulin Albumin/Globulin Ratio Lipase U Opiates 300ng/mL cut Ur Oxycodone Screen Urine Methadone Screen Ur Barbiturates Screen U Tricyclic Antidepress Ur Phencyclidine Scrn Ur Amphetamines Screen U Methamphetamines Scrn Ur MDMA Scrn (Ecstasy) U Benzodiazepines Scrn Urine Cocaine Screen U Marijuana (THC) Screen COVID-19 PCR Assessment & Plan Assessment & Plan narrative: León Dai is a 49-year-old male with a past medical history significant for polysubstance abuse including methamphetamines, marijuana, alcohol, and nicotine who presented to the ED complaining of lower extremity swelling. 1. Acute new onset congestive heart failure, likely secondary to tachyarrhythmia induced cardiomyopathy, present on admission. Active. -Patient presented with significant peripheral edema of abdomen, scrotum and legs over last 6 days. Patient notes dyspnea on exertion for at least 6 months. Patient admits to long-term methamphetamine use and likely has new onset CHF and tachyarrhythmia induced cardiomyopathy. He denies history of IV drug use or valvular endocarditis. Patient reports that he was previously evaluated for what he describes as a prolapsed heart valve and murmur in his early 20s. -ProBNP 3,200. -Chest x-ray demonstrated chronic CHF pattern with possible mild acute exacerbation. -Received 40 mg IV Lasix in ED. Continue furosemide 40 mg IV daily. -Continue to monitor closely on telemetry. -Continue strict I&Os and daily weights. Net -2.9 L. -Continue to monitor electrolytes and replete as necessary. -Ordered echocardiogram, pending. 2. Type 2 [place], likely secondary to demand ischemia due to CHF, present on admission. Resolving. -Initial troponin 0.061. Troponin trended up to 0.071 and trending back down. -EKG demonstrated LVH with repolarization and left heart strain without acute ischemic changes such as ST elevation or depression. Patient denies chest pain or pressure. -Continue to monitor closely on telemetry. Patient had one 6 beat run of asymptomatic nonsustained ventricular tachycardia. Patient currently in sinus rhythm without significant ectopy. -Ordered echocardiogram, pending. -Continue aspirin 81 mg daily and carvedilol 3.125 mg twice daily. -Continue diuresis as above. Continue to monitor electrolytes and replete as necessary. 4. Polysubstance abuse including methamphetamines, marijuana, alcohol and tobacco, chronic, present on admission. Stable. -Positive urine toxicology screen was positive for methamphetamines and marijuana. Patient endorses daily alcohol use and nicotine dependence and smokes 1 pack every 3 days. -Counseled the patient in detail regarding cessation and abstinence indefinitely from all substances. -Consulted [facility] for CD assessment and outpatient /inpatient resources. We appreciate her time and recommendations. 5. Prediabetes, newly diagnosed, present on admission. Stable. -Hemoglobin A1c 6.3%. -Continue heart healthy/carbohydrate consistent diet. -Consulted dietitian, pending. Code status: Full code VTE prophylaxis: Enoxaparin, SCDs Disposition: Patient likely to discharge home in 1-2 days after workup of new onset CHF and adequate diuresis. Quality VTE Deep Vein Thrombosis/Pulmonary Embolism Present on Admission: No
[2019-11-21 13:10] LABS: Cholesterol 149 mg/dL (140-199); HDL Cholesterol 27 mg/dL (40-60); LDL Cholesterol Calculated 101 mg/dL (<100); Triglycerides 103 mg/dL (35-150)
[2019-11-21 13:43] LABS: Magnesium 2.2 mg/dL (1.6-2.3)
[2019-11-21 14:11] LABS: Alanine Aminotransferase 57 IU/L (<50); Albumin 3.6 g/dL (3.5-5.0); Albumin Globulin Ratio 1.4 (1.0-2.8); Alkaline Phosphatase 119 U/L (38-126); Aspartate Aminotransferase 46 IU/L (17-59); Bilirubin Total 1.3 mg/dL (0.2-1.3); Bilirubin Unconjugated 0.8 mg/dL (0.0-1.1); Globulin 2.5 g/dL (1.7-4.1); HEMOLYSIS < 15 (0-50); Total Protein 6.1 g/dL (6.3-8.2)
[2019-11-21 14:15] LABS: TSH w/ Reflex to FT4 2.82 uIU/mL (0.47-4.68)
--- NOTE | 2019-11-21 14:22 | CM.SWNOTE ---
PLUMBING TECHNICIAN Note This PLUMBING TECHNICIAN requested to consult to complete TRACY assessment of this 49 yo male, presents w/new onset CHF. Patient admits to meth, alcohol, nicotine and alcohol use. Reviewed case w/ RN ENA Null; then met w/ patient, introduced PLUMBING TECHNICIAN role. 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 Patient currently living w/his mom in [place], states he is looking for an apt but this is very difficult since he has no income currently. 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 Patient admits to meth use within the last month. Patient first started using meth in college and since that time has had one period of sobriety, lasting 2 years. Patient says he thinks he could quit but needs to not be around any of his current friends that use. Re: use- patient will not give specific amounts of daily Meth use, states he does a lot. Patient admits to smoking marijuana and smoking tobacco cigarettes throughout the day, everyday. Patient drinks approx 2 beers daily, per his report. Asked patient if he is interested in getting clean and remaining clean and patient shrugs. This PLUMBING TECHNICIAN suggests in order to get/stay clean patient will need to be motivated to do so and seek treatment himself. Patient became tearful. He states he has no children, no spouse and I don't even have a dog. This PLUMBING TECHNICIAN suggested that if patient were ready and willing to consider sobriety, patient would likely have more of a chance of getting, sustaining meaningful relationships in his life, patient agrees. Patient willing to take brochure for [facility] today. Strongly encouraged patient to give them a call if ready for a healthier, longer life. JAIME Vasquez
[2019-11-21 16:19] VITALS: BP 94/70; PULSE 80; RESP 14; TEMP 36.1; O2SAT 98
--- NOTE | 2019-11-21 18:24 | P.DS_ITS ---
History of Present Illness History of Present Illness Date Patient Seen: 11/20/19 Chief complaint: swelling Narrative: Written by Dr. Reeves: This is a 49-year-old male with new onset congestive heart failure. He describes the 1st unusual symptom he had was of a brief syncopal episode 2 weeks ago which he did make much out of. For the last 6 days he has had leg swelling and scrotal swelling. There has been no shortness of breath. On admission his BNP is 3200 and his chest x-ray shows congestive heart failure. He has a heart murmur that is apparently new. With 40 mg of Lasix given in the emergency department he no longer has any edema when I see him on the medical galvez this evening. He does not mention any previous cardiology follow-up or evaluation and seems to be unaware and somewhat unconcerned about having heart disease. His urine drug screen is positive for methamphetamines and negative for cocaine. He says he last used cocaine years ago and methamphetamines about 1 month ago. There is no family history of heart disease. He has not had any chest pain. His CK is elevated at 323. After discussion with Cardiology he was admitted for diuresis, troponin surveillance and telemetry. He has had 1 6 beat run of V- tach while on telemetry this evening. He has not had any symptoms to match that episode. He says he lives in [place] but has no fixed address and is essentially homeless. Discharge Providers Provider Date of admission: 11/20/19 16:57 Discharge Date: 11/21/19 Consults: 11/21/19 12:52 Consult to AIRPORT OPERATIONS SUPERVISOR - Special Education Para Professional Routine Comment: AIRPORT OPERATIONS SUPERVISOR Consult: Substance Abuse Assess 11/21/19 17:52 Consult to Cardiology Routine Comment: Consulting Provider: Nilson La Reason for consultation: Severe bivent HF, critical with bicuspid valve Has provider been notified: Yes Discharge provider: Shaye Ordoñez DO Summary Hospital Course Discharge Diagnosis: 1. Acute severe biventricular systolic heart failure and severe critical aortic stenosis, present on admission. Active. 2. Type 2 RI, likely secondary to demand ischemia due to CHF, present on admission. Resolving. 3. Polysubstance abuse including methamphetamines, marijuana, alcohol and tobacco, chronic, present on admission. Stable. 4. Prediabetes, newly diagnosed, present on admission. Stable. Hospital Course: León Dai is a 49-year-old male with a past medical history significant for polysubstance abuse including methamphetamines, marijuana, alcohol, and nicotine who presented to the ED complaining of lower extremity swelling. 1. Acute severe biventricular systolic heart failure and severe critical aortic stenosis, present on admission. Active. -Patient presented with significant peripheral edema of abdomen, scrotum and legs over last 6 days. Patient notes dyspnea on exertion for at least 6 months. Patient admits to long-term methamphetamine use and likely has new onset CHF and tachyarrhythmia induced cardiomyopathy. He denies IV drug use or history of valvular endocarditis. Patient reports that he was previously evaluated for bicuspid aortic valve in his early 20s. -ProBNP 3,200. -Chest x-ray demonstrated chronic CHF pattern with possible mild acute exacerbation. -Received 40 mg IV Lasix in ED. Continued furosemide 40 mg IV daily. -Continued strict I&Os and daily weights. Net -2.9 L. -Continued to monitor closely on telemetry. Patient had a 6 beat run of asymptomatic nonsustained ventricular tachycardia. Patient has had no further ectopy and has been in sinus rhythm throughout his hospitalization. -Risk stratified with hemoglobin A1c 6.3% indicative of prediabetes, fasting lipid panel which demonstrated fair lipid control with: Total cholesterol 149, triglycerides 103, LDL 101 (goal < 100) and HDL low at 27, TSH normal at 2.82. -Continued to monitor electrolytes and replete as necessary. Goal K> 4.0 and Mg > 2.0. Current potassium 4.2 and magnesium 2.2. -Echocardiogram demonstrated left ventricle is moderately dilated with severely reduced systolic function, diastolic parameters suggest a pseudonormalization pattern consistent with probable elevated filling pressures, right ventricle is mildly dilated and systolic function is moderately reduced, there is severe aortic stenosis RVSP is estimated to be at least 52 mmHg based on an estimated right atrial pressure of 15 mmHg, peak aortic velocity is 4 m/sec, mean gradient is 43.1 mmHg, calculated aortic valve area is 0.96 cm2, and there is a small, mobile echogenic structure noted on the aortic side of the aortic valve measuring approximately 6 mm x 2 mm. 2. Type 2 RI, likely secondary to demand ischemia due to CHF, present on a dmission. Resolving. -Patient denies chest pain/pressure or ACS symptoms. -Initial troponin I 0.061 and CK-MB 4.86. Troponin trended up to 0.071 and is now back down to 0.061. -EKG demonstrated LVH with repolarization and left heart strain without acute ischemic changes such as ST elevation or depression. -Continued to monitor closely on telemetry. Patient had one 6 beat run of asymptomatic nonsustained ventricular tachycardia. Patient currently in sinus rhythm without significant ectopy. -Echocardiogram as above. -Continued aspirin 81 mg daily and carvedilol 3.125 mg twice daily. -Continued diuresis as above. Continued to monitor electrolytes and replete as necessary. 3. Polysubstance abuse including methamphetamines, marijuana, alcohol and nicotine, chronic, present on admission. Stable. -Urine toxicology screen was positive for methamphetamines and marijuana. -Patient endorses daily methamphetamine use (both intranasal and smoking methamphetamine), marijuana use (since he was 22 years old), alcohol use (approximately 2 beers per day and occasionally liquor since he was 23 years old) and nicotine dependence and smokes 1 pack every 3 days. The patient denies IV drug use. -Counseled the patient in detail regarding cessation and abstinence indefinitely from all substances. -Consulted AIRPORT OPERATIONS SUPERVISOR for CD assessment and outpatient /inpatient resources. We appreciate her time and recommendations. 4. Prediabetes, newly diagnosed, present on admission. Stable. -Hemoglobin A1c 6.3%. -Continued heart healthy/carbohydrate consistent diet. -Consulted dietitian, pending. Exam Vital Signs (past 8 hours): - 11/21/19 12:00 11/21/19 16:19 Temperature 96.9 F L 97.0 F L Pulse Rate 99 H 80 Respiratory Rate 17 14 Blood Pressure 98/75 94/70 Pulse Oximetry 98 98 Oxygen Delivery Method Room Air Oxygen Flow Rate 0 Narrative Exam Narrative: General: Middle-aged male sitting in bed and in no acute distress, well- developed, well-nourished, appropriately interactive. HEENT: Normocephalic, atraumatic. External ears without defect. Pupils equal, round, and reactive to light. Anicteric sclerae, moist conjunctivae, and no lid lag. Oropharynx free of erythema and cobble stoning with moist mucosa. Frequent bruxism and jaw clenching. Neck: Supple with full range of motion. No jugular venous distension. Hepatojugular reflex negative. No lymphadenopathy or thyromegaly. Cardiovascular: Regular rate and rhythm with soft +2 out of systolic ejection click murmur. No rubs or gallops appreciated. Pulmonary: Clear to auscultation bilaterally with occasional bibasilar crackle. No wheezes or rhonchi. Normal respiratory effort with no use of accessory muscles. Abdomen: Soft, bowel sounds present, nontender, nondistended. No hepatosplenomegaly or masses appreciated. Genitourinary: Scrotal edema resolved. Extremities: No clubbing or cyanosis. +2 bipedal pitting edema. Skin: Normal temperature, turgor, and texture; no rash, ulcers, or subcutaneous nodules appreciated. No stigmata of endocarditis. Neurological: Cranial nerves grossly intact. Psychiatric: Normal mood and affect. Slightly tearful. Alert and oriented to person, place, and time. Objective Labs Result Diagrams: 11/21/19 04:40 11/21/19 04:40 Labs: Laboratory Results - last 24 hr 11/20/19 11/20/19 11/20/19 14:40 17:03 20:37 WBC RBC Hgb Hct MCV MCH MCHC RDW Plt Count Neut % (Auto) Lymph % (Auto) [place] % (Auto) Eos % (Auto) Baso % (Auto) Neut # (Auto) Lymph # (Auto) [place] # (Auto) Eos # (Auto) Baso # (Auto) Sodium Potassium Chloride Carbon Dioxide BUN Creatinine Estimated GFR BUN/Creatinine Ratio Glucose Hemoglobin A1c 6.3 H Calcium Magnesium Total Bilirubin Conjugated Bilirubin Unconjugated Bilirubin AST ALT Alkaline Phosphatase Total Creatine Kinase 278 H CK-MB (CK-2) 4.76 H CK-MB (CK-2) Rel Index 1.7 Troponin I 0.071 H NT-Pro-B Natriuret Pep Total Protein Albumin Globulin Albumin/Globulin Ratio Triglycerides Cholesterol LDL Cholesterol, Calc HDL Cholesterol TSH COVID-19 PCR Negative 11/20/19 11/21/19 11/21/19 22:55 04:40 04:40 WBC 8.0 RBC 4.70 Hgb 13.4 L Hct 41.2 MCV 87.7 MCH 28.5 MCHC 32.6 RDW 14.1 Plt Count 282 Neut % (Auto) 63.2 Lymph % (Auto) 22.9 L [place] % (Auto) 9.2 Eos % (Auto) 3.6 Baso % (Auto) 1.1 Neut # (Auto) 5100 Lymph # (Auto) 1800 [place] # (Auto) 700 Eos # (Auto) 300 Baso # (Auto) 100 Sodium 136 L Potassium 4.2 Chloride 101 Carbon Dioxide 32 BUN 8 L Creatinine 1.05 Estimated GFR > 60.0 BUN/Creatinine Ratio 7.6 Glucose 106 H Hemoglobin A1c Calcium 9.2 Magnesium Total Bilirubin Conjugated Bilirubin Unconjugated Bilirubin AST ALT Alkaline Phosphatase Total Creatine Kinase CK-MB (CK-2) CK-MB (CK-2) Rel Index Troponin I 0.066 H NT-Pro-B Natriuret Pep 2810 H Total Protein Albumin Globulin Albumin/Globulin Ratio Triglycerides Cholesterol LDL Cholesterol, Calc HDL Cholesterol TSH COVID-19 PCR 11/21/19 11/21/19 11/21/19 04:40 04:40 11:32 WBC RBC Hgb Hct MCV MCH MCHC RDW Plt Count Neut % (Auto) Lymph % (Auto) [place] % (Auto) Eos % (Auto) Baso % (Auto) Neut # (Auto) Lymph # (Auto) [place] # (Auto) Eos # (Auto) Baso # (Auto) Sodium Potassium Chloride Carbon Dioxide BUN Creatinine Estimated GFR BUN/Creatinine Ratio Glucose Hemoglobin A1c Calcium Magnesium Total Bilirubin Conjugated Bilirubin Unconjugated Bilirubin AST ALT Alkaline Phosphatase Total Creatine Kinase 196 H 177 H CK-MB (CK-2) 3.41 H 3.55 H CK-MB (CK-2) Rel Index 1.7 2.0 Troponin I 0.065 H 0.067 H NT-Pro-B Natriuret Pep Total Protein Albumin Globulin Albumin/Globulin Ratio Triglycerides 103 Cholesterol 149 LDL Cholesterol, Calc 101 H HDL Cholesterol 27 L TSH COVID-19 PCR 11/21/19 11/21/19 11/21/19 11:32 11:32 11:32 WBC RBC Hgb Hct MCV MCH MCHC RDW Plt Count Neut % (Auto) Lymph % (Auto) [place] % (Auto) Eos % (Auto) Baso % (Auto) Neut # (Auto) Lymph # (Auto) [place] # (Auto) Eos # (Auto) Baso # (Auto) Sodium Potassium Chloride Carbon Dioxide BUN Creatinine Estimated GFR BUN/Creatinine Ratio Glucose Hemoglobin A1c Calcium Magnesium 2.2 Total Bilirubin 1.3 Conjugated Bilirubin 0.0 Unconjugated Bilirubin 0.8 AST 46 ALT 57 H Alkaline Phosphatase 119 Total Creatine Kinase CK-MB (CK-2) CK-MB (CK-2) Rel Index Troponin I NT-Pro-B Natriuret Pep Total Protein 6.1 L Albumin 3.6 Globulin 2.5 Albumin/Globulin Ratio 1.4 Triglycerides Cholesterol LDL Cholesterol, Calc HDL Cholesterol TSH 2.82 COVID-19 PCR Discharge Plan Discharge Plan Disposition: Xfer Acute Care Hospital Visit Report/Discharge Packet Instructions: Heart Failure, Echocardiogram Quality VTE Deep Vein Thrombosis/Pulmonary Embolism Present on Admission: No
[2019-11-21 18:29] LABS: Creatine Kinase 162 U/L (55-170)
[2019-11-21 18:41] LABS: Troponin I 0.061 ng/mL (0.01-0.034)
[2019-11-21 18:44] LABS: CKMB % Relative Index 2.1 % (1.5-5.0); Creatine Kinase MB 3.44 ng/mL (<2.37)
[2019-11-21 18:45] VITALS: BP 117/82; PULSE 90
[2019-11-21 19:00] VITALS: BP 112/79; PULSE 81
[2019-11-21 19:05] LABS: Procalcitonin < 0.05 ng/mL (<0.5)
--- NOTE | 2019-11-21 20:39 | PC.NURSE ---
Patient accepted to [facility] [address], report called . Patient taken via EMS, vitals stable, belongings taken with patient. Tele removed, IV in place left forearm.
== END 2019-11-21 20:38 | disposition short-term general hospital (02) | DRG 282 ==
LOC: ED 15:51 → AC 16:57 → ICU 11-21 18:25
PROVIDERS: Family Medicine; Admitting Provider Internal Medicine; Emergency Provider Emergency Medicine; Referring Provider Emergency Medicine; Visit Provider Internal Medicine
DX: I50.21 Acute systolic (congestive) heart failure (principal); I21.A1 Myocardial infarction type 2; F10.10 Alcohol abuse, uncomplicated; F15.10 Other stimulant abuse, uncomplicated; F12.10 Cannabis abuse, uncomplicated; I35.0 Nonrheumatic aortic (valve) stenosis; F17.210 Nicotine dependence, cigarettes, uncomplicated; R73.03 Prediabetes; Z11.59 Encounter for screening for other viral diseases
CPT/HCPCS: 36415; 71045; 80048; 80053; 80061; 80076; 80305; 81003; 82550; 82553; 82962; 83036; 83690; 83735; 83880; 84145; 84443; 84484; 85025; 85610; 85730; 87040; 87635; 93005; 93306; 96374; 99285; J1650; J1940

== ENCOUNTER 2021-08-05 13:13 | Emergency (ER) | payer OTHER, MEDICAID, SELFPAY ==
[2019-11-20 17:16] VITALS: BMI 31.0
--- NOTE | 2021-08-05 13:37 | DI.RAD.S_ITS ---
PROCEDURE: XR CHEST 1V INDICATIONS: chest pain TECHNIQUE: One view of the chest was acquired. COMPARISON: [facility], CR, XR CHEST 1V, 11/20/2019, 14:35. FINDINGS: Surgical changes and devices: Sternotomy wires and an aortic valve prosthesis can be seen. Lungs and pleura: Low lung volumes are noted. This causes a crowded appearance to the lung markings and limits evaluation. On this semiupright portable chest examination, no large pneumothorax or large pleural effusions are seen. No focal infiltrates are seen. Mediastinum: Mediastinal contours appear normal. Heart size is normal. Bones and chest wall: No suspicious bony lesions. Age-appropriate bony degenerative changes are seen. At least 1 remote left posterior lateral rib fracture can be seen. Overlying soft tissues appear unremarkable. IMPRESSION: Limited portable chest examination, without a significant cardiopulmonary abnormality identified. Postoperative and degenerative changes are seen. Dictated by: Jessee Araya M.D. on 08/05/2021 at 13:08 Approved by: Jessee Araya M.D. on 08/05/2021 at 13:09
[2021-08-05 13:41] VITALS: BP 163/96; PULSE 77; RESP 17; TEMP 36.2; O2SAT 97; BMI 30.4
--- NOTE | 2021-08-05 13:58 | ED.CHESTPAIN ---
HPI - Chest Pain <Gabriel Goodson PA-C - Last Filed: 08/05/21 20:24> General Chief Complaint: Chest Pain Stated Complaint: Chest Pain Time Seen by Provider: 08/05/21 13:39 Source: patient Mode of arrival: Ambulatory History of Present Illness HPI narrative: Patient is a 51-year-old male presenting to the emergency department today for evaluation of left-sided chest pain. Patient states that at around 10:30 a.m. this morning he began to experience and aching pain in the left upper chest and left armpit. He states that the pain has worsened with activity and movement of the left arm. He describes the pain as a constant ache that he rates a 3/10 in intensity. Of note, patient does report a history of aortic valve replacement on 11/24/2019. Patient states that he is supposed to be taking 81 mg of aspirin daily, however he states that other than today he has not been taking the medication consistently. No fevers, chills, cough, shortness of breath, nausea, vomiting, diarrhea, abdominal pain, constipation, diaphoresis, dysuria, hematuria, chest pain radiating to the back, syncope, changes in vision or hearing, jaw pain, or any other concerning symptoms reported. No further concerns were voiced at this time. Related Data Home Medications Medication Instructions Recorded Confirmed aspirin 81 mg tablet,delayed 81 mg PO DAILY 08/05/21 08/05/21 release Allergies Allergy/AdvReac Type Severity Reaction Status Date / Time No Known Drug Allergies Allergy Verified 08/05/21 13:43 Review of Systems <Gabriel Goodson PA-C - Last Filed: 08/05/21 20:24> Constitutional Constitutional: Denies chills, Reports fatigue, Denies fever(s), Denies frequent falls, Denies lethargy and Denies weakness Eyes Eyes: Denies loss of vision ENT Ears, Nose, Mouth, and Throat: Denies dizziness and Denies neck pain Cardiovascular Cardiovascular: Reports chest pain, Denies irregular heart rhythm, Denies lightheadedness, Denies palpitations, Denies dyspnea, Denies dyspnea on exertion and Denies orthopnea Respiratory Respiratory: Denies cough, Denies dyspnea, Denies dyspnea on exertion and Denies wheezing Gastrointestinal Gastrointestinal: Denies abdominal pain, Denies change in bowel habits, Denies diarrhea, Denies nausea and Denies vomiting Genitourinary Genitourinary: Denies hematuria, Denies flank pain, Denies urinary incontinence and Denies urinary urgency Musculoskeletal Musculoskeletal: Denies back pain, Denies muscle weakness, Denies neck pain, Denies numbness and Denies tingling Integumentary/Breasts Skin/Breast: Denies pruritus, Denies erythema, Denies rash and Denies wounds Neurologic Neurologic: Denies behavioral changes, Denies confusion, Denies dizziness, Denies frequent falls, Denies loss of vision, Denies numbness, Denies tingling and Denies weakness Psychiatric Psychiatric: Denies behavioral changes and Denies confusion Endocrine Endocrine: Reports fatigue and Denies palpitations Allergic/Immunologic Allergic/Immunologic: Denies wheezing Patient History <Gabriel Goodson PA-C - Last Filed: 08/05/21 20:24> Medical History Alcohol use Cigarette nicotine dependence Methamphetamine use Patient denies medical problems Surgical History Hx of tonsillectomy Family History Mother No problems noted. Father Pancreas cancer Social History household members: friend(s) Smoking Status: Former smoker Smoking Status: Former smoker alcohol intake frequency: 0-2 drinks per day Substance Use Type: marijuana Exam <Gabriel Goodson PA-C - Last Filed: 08/05/21 20:24> Narrative Exam Narrative: GENERAL: 51 year old patient appears stated age. Well-developed patient, in no acute distress. HEAD: Atraumatic. Normocephalic. EYES: Pupils equal round and reactive. Extraocular motions intact. No scleral icterus. No injection or drainage. ENT: Nose without bleeding, purulent drainage. Throat without erythema, tonsillar hypertrophy or exudate. Airway patent. NECK: Trachea midline. Non tender CARDIOVASCULAR: Regular rate and rhythm without murmurs, gallops, or rubs. RESPIRATORY: Clear to auscultation. Breath sounds equal bilaterally. No wheezes, rales, or rhonchi. GASTROINTESTINAL: Abdomen soft, non-tender, nondistended. EXTREMITIES: No edema or joint tenderness. Good sensation light touch appreciated throughout the bilateral upper extremities. Gross motor function intact of the bilateral upper extremities. MUSCULOSKELETAL:Tenderness to palpation over the superior lateral aspect the left pectoralis major. No masses appreciated. No significant overlying ecchymosis or erythema. BACK: Nontender without deformity or crepitance. No flank tenderness. NEURO: AOx3. SKIN: No rash or erythema of visible areas Initial Vital Signs Initial Vital Signs: Vital Signs Temperature 97.1 F L 08/05/21 13:41 Pulse Rate 77 08/05/21 13:41 Respiratory Rate 17 08/05/21 13:41 Blood Pressure 163/96 H 08/05/21 13:41 Pulse Oximetry 97 08/05/21 13:41 <Carolyn Palacios MD - Last Filed: 08/12/21 07:21> Initial Vital Signs Initial Vital Signs: Vital Signs Temperature 97.1 F L 08/05/21 13:41 Pulse Rate 77 08/05/21 13:41 Respiratory Rate 17 08/05/21 13:41 Blood Pressure 163/96 H 08/05/21 13:41 Pulse Oximetry 97 08/05/21 13:41 Course <Gabriel Goodson PA-C - Last Filed: 08/05/21 20:24> Course Course Narrative: CBC, CMP, lipase, magnesium, troponin, EKG, chest x-ray obtained. Patient states that he is feeling tired and states that his fatigue worsened after his chest pain began. Orders Ordered: ED Orders 08/05/21 13:37 XR chest 1V Stat EKG-12 Lead Stat 08/05/21 13:55 Complete Blood Count AUTO DIFF Stat Comprehensive Metabolic Panel Stat Lipase Stat Magnesium Stat Troponin & CK Cardiac Panel Stat 08/05/21 15:46 Trop I [Troponin I] Stat Vital Signs Vital signs: Vital Signs - 8 hr 08/05/21 13:41 08/05/21 15:48 08/05/21 16:55 Temperature 97.1 F L Pulse Rate 77 66 58 L Respiratory Rate 17 17 16 Blood Pressure 163/96 H 146/93 H 144/95 H Pulse Oximetry 97 97 97 <Carolyn Palacios MD - Last Filed: 08/12/21 07:21> Orders Ordered: ED Orders 08/05/21 13:37 XR chest 1V Stat EKG-12 Lead Stat 08/05/21 13:55 Complete Blood Count AUTO DIFF Stat Comprehensive Metabolic Panel Stat Lipase Stat Magnesium Stat Troponin & CK Cardiac Panel Stat 08/05/21 15:46 Trop I [Troponin I] Stat Vital Signs Vital signs: Vital Signs - 8 hr 08/05/21 13:41 08/05/21 15:48 08/05/21 16:55 Temperature 97.1 F L Pulse Rate 77 66 58 L Respiratory Rate 17 17 16 Blood Pressure 163/96 H 146/93 H 144/95 H Pulse Oximetry 97 97 97 MDM - Chest Pain <Gabriel Goodson PA-C - Last Filed: 08/05/21 20:24> Lab Data Result diagrams: 08/05/21 13:55 08/05/21 13:55 Labs: Lab Results 08/05/21 08/05/21 08/05/21 Range/Units 13:55 13:55 15:46 WBC 9.3 (4.5-11.0) X10^3/uL RBC 5.44 (4.5-5.9) X10^6/uL Hgb 16.2 (13.5-17.5) g/dL Hct 47.8 (41-53) % MCV 87.8 (80-100) fL MCH 29.7 (26-34) PG MCHC 33.8 (30-36) % RDW 13.1 (11.6-14.8) % Plt Count 295 (150-400) X10^3/uL Neut % (Auto) 62.9 (50-75) % Lymph % (Auto) 24.5 L (25-40) % Ashley % (Auto) 8.7 (3-14) % Eos % (Auto) 2.5 (2-4) % Baso % (Auto) 1.4 (0-2) % Neut # (Auto) 5900 (5681-1791) /uL Lymph # (Auto) 2300 (2904-9559) /uL Ashley # (Auto) 800 (0-900) /uL Eos # (Auto) 200 (0-450) /uL Baso # (Auto) 100 (0-100) /uL Sodium 140 (137-145) mmol/L Potassium 4.1 (3.4-5.1) mmol/L Chloride 104 (98-107) mmol/L Carbon Dioxide 27 (22-32) mmol/L BUN 12 (9-20) mg/dL Creatinine 0.80 (0.66-1.25) mg/dL Estimated GFR > 60 (>60) mL/min BUN/Creatinine Ratio 15.0 (6-22) Glucose 82 (70-100) mg/dL Calcium 9.4 (8.4-10.2) mg/dL Magnesium 2.2 (1.6-2.3) mg/dL Total Bilirubin 0.5 (0.2-1.3) mg/dL AST 60 H (17-59) IU/L ALT 74 H (<50) IU/L Alkaline Phosphatase 89 (38-126) U/L Total Creatine Kinase 559 H (55-170) U/L CK-MB (CK-2) 5.74 H (<2.37) ng/mL CK-MB (CK-2) Rel Index 1.0 L (1.5-5.0) % Troponin I < 0.012 < 0.012 (0.01-0.034) ng/mL Total Protein 8.5 H (6.3-8.2) g/dL Albumin 5.0 (3.5-5.0) g/dL Globulin 3.5 (1.7-4.1) g/dL Albumin/Globulin Ratio 1.4 (1.0-2.8) Lipase 208 (23-300) U/L Imaging Data Chest x-ray: Radiologist's Impression: PROCEDURE:? XR CHEST 1V ? INDICATIONS:? chest pain ? TECHNIQUE:? One view of the chest was acquired.? ? COMPARISON:? [facility], , XR CHEST 1V, 11/20/2019, 14:35. ? FINDINGS:? ? Surgical changes and devices:? Sternotomy wires and an aortic valve prosthesis can be seen. ? Lungs and pleura:? Low lung volumes are noted. This causes a crowded appearance to the lung markings and limits evaluation.? On this semiupright portable chest examination, no large pneumothorax or large pleural effusions are seen.? No focal infiltrates are seen.? ? Mediastinum:? Mediastinal contours appear normal.? Heart size is normal.? ? Bones and chest wall:? No suspicious bony lesions.? Age-appropriate bony degenerative changes are seen.? At least 1 remote left posterior lateral rib fracture can be seen.? Overlying soft tissues appear unremarkable.? ? ? IMPRESSION:? ? Limited portable chest examination, without a significant cardiopulmonary abnormality identified.? ? Postoperative and degenerative changes are seen.? ? ? Dictated by: Jessee Araya M.D. on 08/05/2021 at 13:08 ? ? Approved by: Jessee Araya M.D. on 08/05/2021 at 13:09 ? MDM Narrative Medical decision making narrative: Differential diagnosis to consider but not limited to acute coronary syndrome versus myocardial infarction versus pneumonia versus rib fracture versus atypical chest pain versus musculoskeletal chest pain versus costochondritis versus muscle strain. I discussed results of lab studies and imaging with patient obtained in the emergency department today and informed him that no acute abnormality was identified today that would require emergent intervention or admission to the hospital. I recommended that the patient follow-up with his primary care provider within the next 2-3 days for further evaluation and management. Patient expresses understanding and agrees to plan. He states that this time that he is comfortable being discharged home. Patient is stable for discharge. Strict return precautions were discussed with the patient prior to discharge. <Carolyn Palacios MD - Last Filed: 08/12/21 07:21> Lab Data Labs: Lab Results 08/05/21 08/05/21 08/05/21 Range/Units 13:55 13:55 15:46 WBC 9.3 (4.5-11.0) X10^3/uL RBC 5.44 (4.5-5.9) X10^6/uL Hgb 16.2 (13.5-17.5) g/dL Hct 47.8 (41-53) % MCV 87.8 (80-100) fL MCH 29.7 (26-34) PG MCHC 33.8 (30-36) % RDW 13.1 (11.6-14.8) % Plt Count 295 (150-400) X10^3/uL Neut % (Auto) 62.9 (50-75) % Lymph % (Auto) 24.5 L (25-40) % Ashley % (Auto) 8.7 (3-14) % Eos % (Auto) 2.5 (2-4) % Baso % (Auto) 1.4 (0-2) % Neut # (Auto) 5900 (3142-0376) /uL Lymph # (Auto) 2300 (0626-1158) /uL Ashley # (Auto) 800 (0-900) /uL Eos # (Auto) 200 (0-450) /uL Baso # (Auto) 100 (0-100) /uL Sodium 140 (137-145) mmol/L Potassium 4.1 (3.4-5.1) mmol/L Chloride 104 (98-107) mmol/L Carbon Dioxide 27 (22-32) mmol/L BUN 12 (9-20) mg/dL Creatinine 0.80 (0.66-1.25) mg/dL Estimated GFR > 60 (>60) mL/min BUN/Creatinine Ratio 15.0 (6-22) Glucose 82 (70-100) mg/dL Calcium 9.4 (8.4-10.2) mg/dL Magnesium 2.2 (1.6-2.3) mg/dL Total Bilirubin 0.5 (0.2-1.3) mg/dL AST 60 H (17-59) IU/L ALT 74 H (<50) IU/L Alkaline Phosphatase 89 (38-126) U/L Total Creatine Kinase 559 H (55-170) U/L CK-MB (CK-2) 5.74 H (<2.37) ng/mL CK-MB (CK-2) Rel Index 1.0 L (1.5-5.0) % Troponin I < 0.012 < 0.012 (0.01-0.034) ng/mL Total Protein 8.5 H (6.3-8.2) g/dL Albumin 5.0 (3.5-5.0) g/dL Globulin 3.5 (1.7-4.1) g/dL Albumin/Globulin Ratio 1.4 (1.0-2.8) Lipase 208 (23-300) U/L Discharge Plan Departure Patient Disposition: Home Clinical Impression: Atypical chest pain Instructions: DI for Atypical Chest Pain Activity Restrictions/Additional Instructions: *You have been diagnosed with atypical chest pain *What to do: *Please continue to take your regular medications as directed. [ ] New medication prescriptions sent to your pharmacy: [ ] [ ] New medication written as a paper prescription [ ] No new medications given You were evaluated in the emergency department today for chest pain. Lab studies and imaging obtained in the emergency department today did not show signs of acute abnormality that would require emergent intervention or admission to the hospital. Recommend following up with the primary care provider within the next 2-3 days for further evaluation and management. Please do not hesitate to return to the emergency department if you experience worsening chest pain, difficulty breathing, pain that radiates to the back, loss of consciousness, or any other concerning symptoms. *Please follow up with your primary care provider in 2-3 days, call for an appointment. Let them know you were seen in the Emergency Department and that we ask that you be seen in follow up. We will electronically transmit a record of today's note if your PCP is in our system *If you do not have a primary care provider please contact the [facility] Resource line at [phone]. They will ask some questions about your medical history and help get you set up with a doctor in the community. *Return to Emergency Department if you should have any new, worsening or concerning symptoms, such as fever greater than 101 F, shaking chills, worsening pain, persistent vomiting or other bothersome symptoms. Prescriptions: No Action aspirin [Aspir-81] 81 mg Tablet,Delayed Release (Dr/Ec) 81 mg PO DAILY 0RF Referrals: Sheila Morales ARNP [Primary Care Provider] - <Carolyn Palacios MD - Last Filed: 08/12/21 07:21> Cosign ED Attending Cosjoseature Attestation: I was immediately available in the department for consultation throughout this patient's visit. I agree with documentation as above. Carolyn Palacios MD
[2021-08-05 14:05] LABS: Add Manual Diff / Slide Review NO; Basophils Absolute Auto 100 /uL (0-100); Basophils Percent Auto 1.4 % (0-2); Eosinophils Absolute Auto 200 /uL (0-450); Eosinophils Percent Auto 2.5 % (2-4); Hematocrit 47.8 % (41-53); Hemoglobin 16.2 g/dL (13.5-17.5); Lymphocytes Absolute Auto 2300 /uL (1100-4500); Lymphocytes Percent Auto 24.5 % (25-40); Mean Corpuscular HGB Conc 33.8 % (30-36); Mean Corpuscular Hemoglobin 29.7 PG (26-34); Mean Corpuscular Volume 87.8 fL (80-100); Monocytes Absolute Auto 800 /uL (0-900); Monocytes Percent Auto 8.7 % (3-14); Neutrophils Absolute Auto 5900 /uL (1500-7000); Neutrophils Percent Auto 62.9 % (50-75); Platelet Count 295 X10^3/uL (150-400); Red Blood Cell Count 5.44 X10^6/uL (4.5-5.9); Red Cell Distribution Width 13.1 % (11.6-14.8); White Blood Cell Count 9.3 X10^3/uL (4.5-11.0)
[2021-08-05 14:15] LABS: Alanine Aminotransferase 74 IU/L (<50); Albumin Globulin Ratio 1.4 (1.0-2.8); Alkaline Phosphatase 89 U/L (38-126); Aspartate Aminotransferase 60 IU/L (17-59); Bilirubin Total 0.5 mg/dL (0.2-1.3); Blood Urea Nitrogen 12 mg/dL (9-20); Calcium 9.4 mg/dL (8.4-10.2); Carbon Dioxide 27 mmol/L (22-32); Chloride 104 mmol/L (98-107); Creatine Kinase 559 U/L (55-170); Estimated Glomerular Filt Rate > 60 mL/min (>60); Globulin 3.5 g/dL (1.7-4.1); Glucose 82 mg/dL (70-100); HEMOLYSIS 17 (0-50); Lipase 208 U/L (23-300); Magnesium 2.2 mg/dL (1.6-2.3); Potassium 4.1 mmol/L (3.4-5.1); Sodium 140 mmol/L (137-145); Total Protein 8.5 g/dL (6.3-8.2)
[2021-08-05 14:27] LABS: Troponin I < 0.012 ng/mL (0.01-0.034)
[2021-08-05 14:30] LABS: Creatine Kinase MB 5.74 ng/mL (<2.37)
[2021-08-05 15:48] VITALS: BP 146/93; PULSE 66; RESP 17; O2SAT 97
[2021-08-05 16:15] LABS: Troponin I < 0.012 ng/mL (0.01-0.034)
[2021-08-05 16:55] VITALS: BP 144/95; PULSE 58; RESP 16; O2SAT 97
== END 2021-08-05 16:57 | disposition home or self-care (01) ==
PROVIDERS: Emergency Medicine; Emergency Provider Physician Assistant; PCP Nurse Practitioner Family
DX: R07.89 Other chest pain (principal); Z87.891 Personal history of nicotine dependence
CPT/HCPCS: 36415; 71045; 80053; 82550; 82553; 83690; 83735; 84484; 85025; 93005; 99283; 99284

== ENCOUNTER 2022-10-25 21:08 | Emergency (ER) | payer OTHER, MEDICAID, SELFPAY ==
[2019-11-20 17:16] VITALS: BMI 31.0
[2022-10-25 21:20] VITALS: BP 147/76; PULSE 81; RESP 16; TEMP 36.7; O2SAT 95; BMI 30.4
[2022-10-25 21:43] VITALS: PULSE 86; O2SAT 96
[2022-10-25 22:00] VITALS: BP 120/68; PULSE 76; O2SAT 95
[2022-10-25 22:30] VITALS: BP 105/55; PULSE 71
--- NOTE | 2022-10-25 22:42 | ED.SKABFB ---
HPI - Skin/Abscess/Foreign Bdy General Chief complaint: Skin/Abscess/Foreign Body Stated complaint: rt lower leg possible infection Time Seen by Provider: 10/25/22 22:00 Source: patient Mode of arrival: Ambulatory Limitations: no limitations History of Present Illness HPI narrative: This is a 52-year-old male with history of prior valve replacement and right lower extremity fracture with hardware. Patient states he broke his ankle in July, he would hardware placed in [place]. He states there was a small abrasion or puncture wound they discharged him on antibiotics for a week. He states it has been doing well until a week ago there was some redness and he was started on cephalexin. He states his Aircast came off 4 days ago. He states he has been walking a lot he has been outside. He states antibiotics improved the redness but that it has not totally resolved. He states the localized redness is significantly better but he does have some spread of redness. Patient states no prior DVTs. He is supposed take an aspirin daily but states he typically forgets but takes it sometimes. He is supposed to take this because of his valve replacement that occurred 3 years ago. Patient states no fevers no chills no chest pain or shortness of breath, no nausea or vomiting. No diarrhea constipation. No urinary symptoms. No numbness or tingling in his lower extremity. Denies other surgeries. No known drug allergies. No tobacco, does use marijuana no other illicit or IV drugs. Occasional alcohol. Patient lives in [place] but is in the area working currently swelling [employer]. Related Data Home Medications Medication Instructions Recorded Confirmed aspirin 81 mg tablet,delayed 81 mg PO DAILY 08/05/21 08/05/21 release Previous Rx's Medication Instructions Recorded sulfamethoxazole 800 1 tab PO Q12H #20 tabs 10/25/22 mg-trimethoprim 160 mg tablet (Bactrim DS) Allergies Allergy/AdvReac Type Severity Reaction Status Date / Time No Known Drug Allergies Allergy Verified 10/25/22 21:23 Review of Systems Review of Systems ROS Unobtainable: All systems reviewed & are unremarkable except as noted in HPI and below Patient History Medical History Alcohol use Cigarette nicotine dependence Methamphetamine use Patient denies medical problems Surgical History Hx of tonsillectomy Family History Mother No problems noted. Father Pancreas cancer Social History household members: friend(s) Smoking Status: Former smoker Smoking Status: Former smoker alcohol intake frequency: 0-2 drinks per day Substance Use Type: marijuana Exam Narrative Exam Narrative: GENERAL: Alert and oriented x three, well-nourished male in mild distress. HEENT: Head normocephalic, atraumatic, EOMI, pupils reactive, face symmetric, moist mucous membranes NECK: Supple, full range of motion CARDIOVASCULAR: Regular rate and rhythm without murmurs, rubs or gallops. RESPIRATORY: Breath sounds equal bilaterally, no wheezes rales or rhonchi. ABDOMEN: Soft, nontender. Normoactive bowel sounds all 4 quadrants. No guarding or rebound, rigidity, no mass : No CVA tenderness EXTREMITIES: Normal range of motion, no clubbing. Neurovascularly intact. Patient has healed incisions on his anterior and lateral right lower extremity, clean dry and intact, there is a patch of erythema approximately 5 cm with some small blistering, no fluctuance. Areas only mildly tender. There is some slight swelling of the lower extremity. 2+ dorsalis pedis. Negative Homans sign. Patient has full range of motion, cap refill less than 2 seconds in all 5 toes. No other changes appreciated. NEUROLOGICAL: Cranial nerves II through XII grossly intact. Moving all extremities SKIN: Warm, dry, no petechiae, no rashes or lesions other than noted above. Initial Vital Signs Initial Vital Signs: Vital Signs Temperature 98.1 F 10/25/22 21:20 Pulse Rate 81 10/25/22 21:20 Respiratory Rate 16 10/25/22 21:20 Blood Pressure 147/76 H 10/25/22 21:20 Pulse Oximetry 95 10/25/22 21:20 Oxygen Delivery Method Room Air 10/25/22 21:20 Course Orders Ordered: Discontinued Medications Trimethoprim/Sulfamethoxazole (Trimeth/Sulfa 160/800 (Ds) Tablet) 1 tab PO NOW ONE Stop: 10/25/22 22:41 Last Admin: 10/25/22 22:45 Dose: 1 tab Documented By: SHAYNE Vital Signs Vital signs: Vital Signs - 8 hr 10/25/22 21:20 10/25/22 21:43 10/25/22 22:00 Temperature 98.1 F Pulse Rate 81 86 Respiratory Rate 16 Blood Pressure 147/76 H 120/68 Pulse Oximetry 95 96 Oxygen Delivery Method Room Air Room Air 10/25/22 22:00 10/25/22 22:30 10/25/22 22:30 Temperature Pulse Rate 76 71 Respiratory Rate Blood Pressure 105/55 L Pulse Oximetry 95 Oxygen Delivery Method Room Air MDM - Skin/Abscess/Foreign Bdy MDM Narrative Medical decision making narrative: This is a 52-year-old male who presents with complaint of possible infection his right lower extremity he did have surgical repair with hardware in July of 2022 had an abrasion over 1 area states he was on antibiotics for a week orally but has not had any issues until the last week. His Aircast came off 4 days ago he noticed some redness it got better with cephalexin after 7 days but did not resolve and has been persistent since he completed his antibiotics several days ago. Patient states he did not not take the doxycycline that he was prescribed because he is supposed to be out in the sun a lot. Discussed with patient my suspicion for DVT is quite low he is a very patchy erythematous area, does not appear to have abscess so will cover him with an antibiotic that does cover for MRSA with short-term follow-up. Discharge Plan Departure Patient Disposition: Home Clinical Impression: Cellulitis of leg, right Instructions: DI for Cellulitis -- Adult Activity Restrictions/Additional Instructions: Follow-up if your symptoms are not resolving in the next week. Take antibiotic, 1 tablet twice daily x 10 days. Prescription sent to [facility] in [place]. Please return for fevers, increasing redness, swelling, pain, new numbness or tingling or other new or concerning changes. Prescriptions: New sulfamethoxazole-trimethoprim [Bactrim DS] 800-160 mg tablet 1 tab PO Q12H Qty: 20 0RF No Action aspirin [Aspir-81] 81 mg Tablet,Delayed Release (Dr/Ec) 81 mg PO DAILY Referrals: Sheila Morales ARNP [Primary Care Provider] - Stand Alone Forms: Patient Portal/API
[2022-10-25] MEDS: TRIMETH/SULFA 160/800 (DS) TABLET 1 TAB PO (22:45)
== END 2022-10-25 22:51 | disposition home or self-care (01) ==
PROVIDERS: Emergency Provider Emergency Medicine; PCP Nurse Practitioner Family
DX: L03.115 Cellulitis of right lower limb (principal)
CPT/HCPCS: 99283